=== PATIENT | female | born 1930 | race Caucasian/White ===

== ENCOUNTER 2016-03-12 15:16 | Observation (INO) | payer MEDICARE, BC ==
[2016-03-12] MEDS ORDERED: NS 0.9% 1000 ML* 1,000 ML IV SCH ×2 (16:00→20:15)
--- NOTE | 2016-03-12 16:02 | ED ---
Abdominal Pain/Female - HPI Summary HPI Summary: The patient is a 85 year old female presenting for reported generalized weakness and change in mentation. Patient only complaint is diarrhea for several days which her was also experiencing. Admits to being functionally independent at home without cane or walker requiring more assistance with ADL's today. Patient denies fever, chills, diaphoresis, visual disturbance, headache, nasal symptoms, sore throat, cough, shortness of breath, chest pain, palpitations, lightheadedness, syncope, abdominal pain, nausea, vomiting, dysuria, arthralgia or myalgia, rash. Reports history of DM on oral medication only. PCP Dr. Juwan Garcia. SH: Retired living independently with , currently admitted to hospital. No smoking or substance use. - History of Current Complaint Chief Complaint: EDAltMentalStatus Stated Complaint: VOMITING/DIARRHEA/WEAKNESS Time Seen by Provider: 03/12/16 15:29 Pain Intensity: 0 Allergies/Adverse Reactions: Allergies Allergy/AdvReac Type Severity Reaction Status Date / Time Penicillins Allergy Intermediate Hives Verified 11/30/11 08:49 Home Medications: Home Medications Escitalopram (NF) [Lexapro (NF)] 20 mg PO DAILY 03/12/16 [History Confirmed ] Exenatide [Bydureon] 2 mg SUBCUT WEEKLY 03/12/16 [History Confirmed 03/12/16] Fluticasone NASAL SPRAY 50MCG* [Flonase NASAL SPRAY 50MCG*] 2 spray BOTH NARES DAILY 03/12/16 [History Confirmed 03/12/16] Propranolol TAB* [Inderal TAB*] 10 mg PO BID 03/12/16 [History Confirmed ] glipiZIDE TAB.XL* [Glucotrol XL*] 2.5 mg PO DAILY 03/12/16 [History Confirmed ] PMH/Surg Hx/FS Hx/Imm Hx Respiratory History: Comment Only: Other Respiratory Problems/Disorders - natural invierment - Cancer History Hx Chemotherapy: No Hx Radiation Therapy: No Infectious Disease History: No Infectious Disease History: Denies: Traveled Outside the [place] in Last 30 Days Review of Systems Positive: Fatigue. Negative: Fever, Chills Eyes: Negative Negative: Blurred Vision, Diplopia ENT: Negative Negative: Sore Throat, Nasal Discharge Cardiovascular: Negative Negative: Palpitations, Chest Pain Respiratory: Negative Negative: Shortness Of Breath, Cough Positive: Diarrhea. Negative: Abdominal Pain, Vomiting, Nausea Genitourinary: Negative Negative: dysuria, hematuria Musculoskeletal: Negative Negative: Arthralgia, Myalgia Skin: Negative Negative: Rash Negative: Headache, Paresthesia, Numbness, Syncope, Slurred Speech All Other Systems Reviewed And Are Negative: Yes Physical Exam Triage Information Reviewed: Yes Vital Signs On Initial Exam: Initial Vitals Temp Pulse Resp BP Pulse Ox 97.5 F 105 20 162/67 98 03/12/16 15:20 03/12/16 15:20 03/12/16 15:20 03/12/16 15:20 03/12/16 15:20 Vital Signs Reviewed: Yes Appearance: Positive: Well-Appearing, No Pain Distress, Well-Nourished Skin: Positive: Warm, Skin Color Reflects Adequate Perfusion, Dry Head/Face: Positive: Normal Head/Face Inspection. Negative: Temporal Artery Tenderness, Cephalohematoma Eyes: Positive: Normal, EOMI, LUCINA, Conjunctiva Clear ENT: Positive: Normal ENT inspection, Hearing grossly normal, Pharynx normal, TMs normal, Other - oral mucosa dry. Negative: Pharyngeal erythema, Nasal drainage Neck: Positive: Supple, Nontender, No Lymphadenopathy Respiratory/Lung Sounds: Positive: Clear to Auscultation, Breath Sounds Present. Negative: Decreased Breath Sounds, Rales, Rhonchi, Wheezes, Unable to speak in full sentences, Fatigue Cardiovascular: Positive: Normal, RRR, Pulses are Symmetrical in both Upper and Lower Extremities, Leg Edema Left - trace, Leg Edema Right, Other - trace, S1, S2. Negative: Murmur, Rub Abdomen Description: Positive: Nontender, No Organomegaly, Soft. Negative: CVA Tenderness (R), CVA Tenderness (L), Distended, Guarding, Hernia @, Hepatomegaly , McBurney's Point Tenderness, Peritoneal Signs, Splenomegaly Bowel Sounds: Positive: Present Musculoskeletal: Positive: Normal, Strength/ROM Intact. Negative: Limited @, Interruption @, Abnormal @, Pain @ Neurological: Positive: Normal, Sensory/Motor Intact, Alert, Oriented to Person Place, Time - oriented to self, place, month; not year, CN Intact II-III, Reflexes Intact - Patellar 2+, Babinski Bilateral - downward, Cerebellar Dysfunction - normal heel to kong, Facial Symmetry, Speech Normal, Other - minimally tangential requiring redirection. Negative: Receptive Aphasia, Expressive Aphasia, Facial Droop, Slurred Speech, Pronator Drift Present Psychiatric: Positive: Normal AVPU Assessment: Alert Diagnostics - Vital Signs Vital Signs Temp Pulse Resp BP Pulse Ox 03/12/16 15:20 97.5 F 105 20 162/67 98 - Laboratory Result Diagrams: 03/12/16 15:57 03/12/16 15:57 Lab Statement: Any lab studies that have been ordered have been reviewed, and results considered in the medical decision making process. Re-Evaluation - Re-Evaluation First Eval Re-Evaluation Time: 17:19 Comment: Patient reportedly crawling out of bed stating she wishes to go upstairs to visit . Requiring 2 person assist back into bed given generalized weakness. Unsafe to be discharged. Awaiting urinalysis. Second Eval Re-Evaluation Time: 18:29 Comment: Has been reportedly incontinent of urine three times. Requested RN straight cath. Abdominal Pain Fem Course/Dx - Course Course Of Treatment: Patient is a 85 female presenting for altered mentation and generalized weakness with reported diarrhea. Afebrile without sepsis. Labs demonstrated glucose 297, BUN/Cr 22.1 but otherwise unremarkable with negative troponin. Stool occult negative. Lab indicates would not run C.Diff as stool sample was formed. Influenza negative. Urinalysis pending. As patient is unsafe to perform ADL's independently and remains with altered mentation, will be admitted to [facility] for continued evaluation and management. Spoke with PCP, Dr. Garcia , who agreed with plan to admit to [facility] overnight and will take over in AM. 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 Yancey. - Diagnoses Provider Diagnoses: Altered mental status, Generalized weakness, Diarrhea Discharge - Discharge Plan Condition: Stable Disposition: ADMITTED TO [facility] Referrals: Juwan Garcia MD [Primary Care Provider] -
[2016-03-12 16:16] LABS: Hematocrit 43 % (35-47); Hemoglobin 14.1 g/dl (12.0-16.0); Mean Corpuscular HGB Conc 33 g/dl (31-36); Mean Corpuscular Hemoglobin 30 pg (27-31); Mean Corpuscular Volume 91 fL (80-97); Mean Platelet Volume 9 um3 (7.4-10.4); Red Blood Count 4.68 10^6/ul (4.0-5.4); Red Cell Distribution Width 14 % (10.5-15); White Blood Count 8.1 10^3/ul (3.5-10.8)
[2016-03-12 16:31] LABS: BUN/Creatinine Ratio 22.1 (8-20); EGFR Non-African American 82.4 (>60); Globulin 2.8 g/dL (2-4); Magnesium 1.9 mg/dL (1.9-2.7); Potassium 3.8 mmol/L (3.5-5.0); Total Bilirubin 0.6 mg/dL (0.2-1.0); Total Protein 6.8 g/dL (6.4-8.9)
--- NOTE | 2016-03-12 19:40 | RAD ---
INDICATION: Altered mental status. Pneumonia. COMPARISON: None TECHNIQUE: An AP portable view obtained at 1936 hours is submitted. FINDINGS: Bones/Soft Tissues: There are no acute bony findings. Cardiomediastinal: The cardiomediastinal silhouette is normal. Lungs: There are no infiltrates. Pleura: There are no pleural effusions. Other: None IMPRESSION: NO ACTIVE DISEASE.
[2016-03-12] MEDS ORDERED: Acetaminophen TAB* 325 MG PO PRN (20:08)
[2016-03-12] MEDS ORDERED: Dextrose 50% Syringe 50 ML* 25 GM/50 ML SYRINGE IV PUSH PRN (20:13)
[2016-03-12 20:42] LABS: C Reactive Protein 6.46 mg/L (< 5.00)
[2016-03-12 20:42] LABS: Urine Bacteria Absent (Absent); Urine Bilirubin Negative (Negative); Urine Glucose 3+(>=500 mg/dL) (Negative); Urine Nitrite Negative (Negative)
[2016-03-12] MEDS: Propranolol TAB* 10 MG PO SCH (22:48)
[2016-03-12] MEDS: Insulin LISPRO* 1 UNITS UNIT SUBCUT SCH (22:50)
[2016-03-12] MEDS: Heparin VIAL(*) 5000 UNITS/ML VIAL (FIVE THOUSAND) SUBCUT SCH (22:51)
--- NOTE | 2016-03-12 22:54 | HP ---
HISTORY AND PHYSICAL: DATE OF ADMISSION: 03/12/16 PRIMARY CARE PHYSICIAN: Dr. Garcia. CHIEF COMPLAINT: Altered mental status. HISTORY OF PRESENT ILLNESS: Naima Saenz is an 85-year-old female with history of benign familial tremor and remote CVA who had been for the past 2 days attending to her who is actually hospitalized at our facility for stroke. The patient apparently did not leave his side for the past few days. She slept with him in the room. She stated that she did not get that much sleep. She was noted by the staff at the telemetry floor where her is staying that she had an episode of incontinence and was confused. She came into the ED for evaluation. Here, patient is able to tell me today's date with some further redirection. She otherwise appears just exhausted and slightly dehydrated. She does not have any focal neurological deficits. She is going to be placed on overnight observation with a diagnosis of altered mental status. PAST MEDICAL HISTORY: Difficult to obtain from a rather poor historian. 1. Diabetic, on oral medications. 2. History of benign familial tremor. 3. Torticollis, under the evaluation of Dr. Powell. 4. History of rectal cancer status post resection. 5. History of CVA with residual problems with balance. The patient ambulates with a cane. MEDICATIONS: Include: 1. Multivitamin 1 tablet daily. 2. Cod liver oil 1 capsule daily. 3. Vitamin C 250 mg daily. 4. Flonase nasal spray 2 sprays both nares daily. 5. Glipizide XL 2.5 mg daily. 6. Propranolol 10 mg b.i.d. 7. Exenatide 2 mg subcutaneously weekly. 8. Lexapro 20 mg daily. ALLERGIES: PENICILLIN. FAMILY HISTORY: Reviewed and noncontributory in this 85-year-old patient. SOCIAL HISTORY: The patient denies any tobacco or drug use. She states that she drinks alcohol occasionally. She is retired and lives with her . 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 Healthcare proxy is her son Joshua Saenz. Joshua's phone number is [phone]. REVIEW OF SYSTEMS: On review of systems, please see the history of present illness. The patient herself stated that she is very tired but she has no other complaints. She denies chest pain or shortness of breath. She stated that she does not feel like urinating right now and she does not remember being incontinent. All the remaining 14 systems were reviewed and is rather a poor historian and were otherwise negative. PHYSICAL EXAMINATION GENERAL: This is a very pleasant 85-year-old female who is in no acute distress. The patient is alert and oriented x2. She remembers her age and her date of . She remembers that the year is 2016 and is February. She cannot tell me the exact date. She has problems recalling when her was admitted in the hospital and how long she had been staying with him in this hospital. VITAL SIGNS: Blood pressure of 152/59, heart rate of 102 and regular, respiratory rate 22, oxygen saturation 97% on room air, temperature 97.5. HEENT: Head atraumatic, normocephalic. Eyes: Pupils equal, round and reactive to light and accommodation. Oropharynx clear. Mucosa dry. NECK: Supple. No JVD. No bruit bilaterally. RESPIRATORY: Clear to auscultation bilaterally. CARDIOVASCULAR: Regular rate and rhythm. No murmur. ABDOMEN: Soft and nontender. Bowel sounds present in all 4 quadrants. EXTREMITIES: There is no edema. Pulses +2 bilaterally. There is no clubbing or cyanosis. NEUROLOGIC: Speech clear. Cranial nerves II through XII grossly intact. Motor strength is 5/5 bilaterally. Notable intentional tremor, this gets worse when patient appears to be more involved and stressed. SKIN: On evaluation of the skin, no ecchymotic areas or rashes noted. LABORATORY DATA: Showed sodium of 133, potassium 3.8, chloride 99, carbon dioxide 25, BUN 19, creatinine 0.68. Liver functions were unremarkable. C- reactive protein of 6.4, troponin of 0. CBC: White blood cell count of 8.1, hemoglobin of 14.1, hematocrit of 43, and platelets 283. Urinalysis showed specific gravity of 1.007, trace esterase and +3 glucose. Influenza was negative. Portable chest x-ray, impression: "No active disease." The patient's EKG is pending at the time of dictation. ASSESSMENT AND PLAN: This is an 85-year-old female with history of diabetes who had been taking care of her who is hospitalized for the past 2 days. The patient was unable to get home. Her family lives at least 4 to 5 hours away. At this point, the etiology of the patient's altered mental status is pure exhaustion, lack of sleep and dehydration. The patient is going to be observed on the medical floor. She is going to be placed on intravenous hydration. I do not believe that she has any focal neuro deficits that warrant any further neuro evaluation. I believe that the patient should to be left to sleep overnight, undisturbed as long as possible. She does not appear to be infected. For her diabetes, the patient is going to be placed on insulin sliding scale and her sulfonylurea is going to be held while in the hospital. For benign familial tremor, propranolol is going to be continued. For DVT prophylaxis, the patient is going to be placed on heparin subcutaneously. The patient's code status is full. The patient's presentation and plan was discussed with patient's healthcare proxy, his son Joshua Saenz. Son is aware that most likely patient is going to be able to go home in the morning and patient's daughter is on her way from [place] to help with the transition of the patient going home. TIME SPENT: Approximately 65 minutes were spent on admission of this patient. More than half the time was spent [id number] with the patient doing the interview and physical exam. CC: Dr. Powell; Dr. Garcia * [id number]/[facility] #: [id number] MTDD
[2016-03-13] MEDS: Heparin VIAL(*) 5000 UNITS/ML VIAL (FIVE THOUSAND) SUBCUT SCH ×2 (06:07→15:16)
[2016-03-13 06:43] LABS: Hematocrit 39 % (35-47); Hemoglobin 12.8 g/dl (12.0-16.0); Mean Corpuscular HGB Conc 33 g/dl (31-36); Mean Corpuscular Hemoglobin 30 pg (27-31); Mean Corpuscular Volume 92 fL (80-97); Mean Platelet Volume 10 um3 (7.4-10.4); Red Blood Count 4.23 10^6/ul (4.0-5.4); Red Cell Distribution Width 14 % (10.5-15); White Blood Count 6.5 10^3/ul (3.5-10.8)
[2016-03-13 06:55] LABS: BUN/Creatinine Ratio 19.3 (8-20); Calcium 8.3 mg/dL (8.6-10.3)
[2016-03-13 06:59] LABS: Potassium 4.5 mmol/L (3.5-5.0)
--- NOTE | 2016-03-13 08:31 | PN ---
Subjective - Subjective Reason for Note: Discharge Note History: I obtained a history from the patient and also Dr. Yancey's admitting H and P. She has been at Evaristo Souza's side and stayed the night with him the night before last. When I saw her y'day morning I woke her up. She looked uncomfortable attempting to sleep upright on a sofa and her neck was flexed forward. She was able to give an account of herself and her , but this was not full of detail. She became unable to ambulate independently, incontinent of urine, disoriented and hence was transferred to the ED. This morning she doesn't remember the events of yesterday. Orientation: place, person, but not time (can't state month - states year each time I ask in different ways), can only remember 1/3 objects after 2 mins. She is able to state why Evaristo is in the hospital. She states she feels much better and back to normal. She denies any focal symptoms. In particular, she has no headache or stroke-like symptoms, no diploplia or change in her vision, no focal weakness or loss of sensation. She states she slept very well overnight and is feeling refreshed. Home meds (from recently reconciled office EMR) ALPRAZolam 0.25 mg tablet 1 pill at bedtime as needed, MDD 1 pill amLODIPine 2.5 mg tablet 1pill daily aspirin 81 mg chewable tablet Chew 1 tablet every day by oral route. Bydureon 2 mg/0.65 mL subcutaneous pen injector Inject 1 injector every week by subcutaneous route. cholecalciferol (vitamin D3) 1,000 unit tablet 1 pill daily clobetasol 0.05 % topical ointment APPLY A THIN LAYER TO THE AFFECTED AREA(S) BY TOPICAL ROUTE 2 TIMES PER DAY escitalopram 20 mg tablet Take 1 tablet every day by oral route. estradiol 0.01% (0.1 mg/gram) vaginal cream apply twice weekly fluorouracil 5 % topical cream fluticasone 50 mcg/actuation nasal spray,suspension [place] 2 sprays by intranasal route. FreeStyle Lancets 28 gauge FreeStyle Lite Strips occasional use glipiZIDE ER 2.5 mg tablet, extended release 24 hr 1 pill dialy hyoscyamine 0.125 mg sublingual tablet every 4 hours as needed levocetirizine 5 mg tablet 1 pill dialy melatonin 3 mg tablet Probiotic daily propranolol 10 mg tablet 1 pill daily psyllium husk 0.52 gram capsule simvastatin 40 mg tablet 1 pill daily zolpidem 5 mg tablet as needed for sleep Active Problems: Active Problems Change in mental state (Acute) R41.82 Dehydration (Acute) E86.0 Gait disorder (Acute) R26.9 Hyperglycemia (Acute) R73.9 Urinary incontinence (Acute) R32 Anxiety disorder (Chronic) F41.9 Dementia (Chronic) F03.90 Essential tremor (Chronic) G25.0 GERD (gastroesophageal reflux disease) (Chronic) K21.9 History of CVA (cerebrovascular accident) (Chronic) Z86.73 Hypercholesterolemia (Chronic) E78.00 Hypertension (Chronic) I10 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 Obese (Chronic) E66.9 Torticollis (Chronic) M43.6 Type 2 diabetes mellitus (Chronic) Current Medications: Current Medications Acetaminophen (Tylenol Tab*) 650 mg PO Q4H PRN PRN Reason: FEVER/PAIN Dextrose (D50w Syringe 50 Ml*) 12.5 gm IV PUSH .FOR FS < 60 - SS PRN PRN Reason: FS < 60 Escitalopram Oxalate (Lexapro (Nf)) 20 mg PO DAILY [facility] Fluticasone Propionate (Flonase Nasal [place] 50mcg*) 2 spray BOTH NARES DAILY [facility] Heparin Sodium (Porcine) (Heparin Vial(*)) 5,000 units SUBCUT Q8HR [facility] Last Admin: 03/13/16 06:07 Dose: 5,000 units Sodium Chloride (Ns 0.9% 1000 Ml*) 1,000 mls @ 125 mls/hr IV PER RATE [facility] Last Admin: 03/13/16 03:04 Dose: 125 mls/hr Insulin Human Lispro (Humalog*) 0 units SUBCUT ACHS [facility] PRN Reason: Protocol Last Admin: 03/12/16 22:50 Dose: 6 unit Propranolol HCl (Inderal Tab*) 10 mg PO BID [facility] Last Admin: 03/12/16 22:48 Dose: 10 mg - Review of Systems Constitutional Symptoms: No: Fever, Night Sweats Pulmonary: Negative: Cough, Sputum Cardiology: Negative: Shortness of Breath, Palpitations, Swelling of Ankles Gastroenterology: Negative: Abdominal Pain, Nausea, Vomiting, Anorexia, Change in Bowel Habits Genital - Urinary: Positive: Other - incontinence Negative: Dysuria, Polyuria Endocrinology: Positive: Diabetes Mellitus Neurology: Positive: Change in Balancing Negative: Headache, Change in Vision, Dizziness, Change in Speech, Numbness\ Paresthesiae Psychiatry: Positive: Anxiety Home Medications: Home Medications Medication Instructions Recorded Confirmed Type Ascorbic Acid TAB* [Vitamin C 250 mg PO DAILY 11/30/11 03/12/16 History TAB*] Cod Liver Oil 1 cap PO DAILY 11/30/11 03/12/16 History Multiple Vitamin [Multivitamin+] 1 liq PO DAILY 11/30/11 03/12/16 History Escitalopram (NF) [Lexapro (NF)] 20 mg PO DAILY 03/12/16 03/12/16 History Exenatide [Bydureon] 2 mg SUBCUT WEEKLY 03/12/16 03/12/16 History Fluticasone NASAL SPRAY 50MCG* 2 spray BOTH NARES DAILY 03/12/16 03/12/16 History [Flonase NASAL SPRAY 50MCG*] Propranolol TAB* [Inderal TAB*] 10 mg PO BID 03/12/16 03/12/16 History glipiZIDE TAB.XL* [Glucotrol XL*] 2.5 mg PO DAILY 03/12/16 03/12/16 History Allergies: Allergies Allergy/AdvReac Type Severity Reaction Status Date / Time Penicillins Allergy Intermediate Hives Verified 11/30/11 08:49 Objective - Vital Signs Vital Signs: Vital Signs 03/12/16 03/12/16 03/12/16 20:30 21:00 21:02 Temperature Pulse Rate 103 101 106 Respiratory 25 23 19 Rate Blood Pressure 137/91 164/75 (mmHg) O2 Sat by Pulse 93 93 94 Oximetry 03/12/16 03/12/16 03/13/16 21:30 22:10 00:01 Temperature 98.3 F 98.0 F Pulse Rate 117 98 Respiratory 22 16 16 Rate Blood Pressure 159/69 169/53 137/64 (mmHg) O2 Sat by Pulse 96 95 Oximetry 03/13/16 03:11 Temperature 98.4 F Pulse Rate 85 Respiratory 16 Rate Blood Pressure 140/71 (mmHg) O2 Sat by Pulse 95 Oximetry - Intake and Output Intake and Output: Intake & Output 03/10/16 03/11/16 03/12/1603/13/17 11:59 11:59 11:59 11:59 Intake Total 921 Balance 921 Weight 170 lb 9.6 oz Intake: IV Fluids 921 NS (0.9%) 921 Oral 0 Other: Estimated Void Large # Bowel Movements 0 # Voids 1 ADLs: Meal Record Start: 03/12/16 22: 57 Freq: DAILY@0900,1400,1800 Status: Active Created 03/12/16 22:57 (Rec: 03/12/16 22:57 [id number]) Intake and Output Start: 03/12/16 21: 25 Freq: DAILY@0600,1400,2200 Status: Inactive Document 03/12/16 22:00 [id number] (Rec: 03/12/16 22:19 [id number]) Intake and Output Start: 03/12/16 22: 57 Freq: DAILY@0600,1400,2200 Status: Active Created 03/12/16 22:57 (Rec: 03/12/16 22:57 [id number]) Document 03/13/16 05:40 [id number] (Rec: 03/13/16 05:40 [id number]) - Physical Exam General: No Cyanosis, No Anemia, No Jaundice, No Lymphadenopathy, No Clubbing Eye Exam: bilateral: PERRLA, EOMI, Vision Field - intact - no inattention Skin: Normal: Rash Head: Yes Normocephalic Lungs and Chest: Yes: Chest Expansion Full, Chest Expansion Symetrica, Percussion Note Resonant, Vessicular Breath Sounds. No: Crackles, Wheezes Heart Rate and Rhythm: Regular JVP: Not Elevated Additional Cardiovascular: Yes: Normal Heart Sounds. No: Heart Murmur, Pedal Edema Abdominal Exam: Yes: Soft, Bowel Sounds Present. No: Distention, Abdominal Mass , Hepatomegaly, Splenomegaly - Extremities Cranial Nerves II-XII Intact: Yes Limbs: Normal Power, Normal Tone, Normal Coordination, Normal Sensation, Abnormal Gait - She requires a walker, but can walk independently - Neuro Orientation: Other - not in time Psychiatric: Anxious Speech: Normal Results - Results Lab Results: Laboratory Results - last 24 hr 03/12/16 03/12/16 03/13/16 20:32 22:27 06:05 WBC 6.5 RBC 4.23 Hgb 12.8 Hct 39 MCV 92 MCH 30 MCHC 33 RDW 14 Plt Count 213 MPV 10 Neut % (Auto) 56.3 Lymph % (Auto) 31.4 [place] % (Auto) 9.6 H Eos % (Auto) 2.0 Baso % (Auto) 0.7 Absolute Neuts (auto) 3.6 Absolute Lymphs (auto) 2.0 Absolute Monos (auto) 0.6 Absolute Eos (auto) 0.1 Absolute Basos (auto) 0 Absolute Nucleated RBC 0 Nucleated RBC % 0 Sodium Potassium Chloride Carbon Dioxide Anion Gap BUN Creatinine Est GFR ( Amer) Est GFR (Non-Af Amer) BUN/Creatinine Ratio Glucose POC Glucose (mg/dL) 300 H Calcium Urine Color Yellow Urine Appearance Clear Urine pH 5.0 Ur Specific [place] 1.007 L Urine Protein Negative Urine Ketones Negative Urine Blood Negative Urine Nitrate Negative Urine Bilirubin Negative Urine Urobilinogen Negative Ur Leukocyte Esterase Trace H Urine WBC (Auto) Trace(0-5/hpf) Urine RBC (Auto) Trace(0-2/hpf) Urine Bacteria Absent Urine Glucose 3+(>=500 mg/dl) H 03/13/16 03/13/16 06:05 08:01 WBC RBC Hgb Hct MCV MCH MCHC RDW Plt Count MPV Neut % (Auto) Lymph % (Auto) [place] % (Auto) Eos % (Auto) Baso % (Auto) Absolute Neuts (auto) Absolute Lymphs (auto) Absolute Monos (auto) Absolute Eos (auto) Absolute Basos (auto) Absolute Nucleated RBC Nucleated RBC % Sodium 138 Potassium 4.5 Chloride 109 Carbon Dioxide 20 L Anion Gap 9 BUN 11 Creatinine 0.57 Est GFR ( Amer) 130.0 Est GFR (Non-Af Amer) 101.0 BUN/Creatinine Ratio 19.3 Glucose 207 H POC Glucose (mg/dL) 230 H Calcium 8.3 L Urine Color Urine Appearance Urine pH Ur Specific [place] Urine Protein Urine Ketones Urine Blood Urine Nitrate Urine Bilirubin Urine Urobilinogen Ur Leukocyte Esterase Urine WBC (Auto) Urine RBC (Auto) Urine Bacteria Urine Glucose Radiology Results: Patient Name: FORTUNATO SOUZA Medical Record#: [id number] Ordering Physician: Kenyatta Yancey MD Acct.#: [id number] : 1930 Age: 85 Sex: F Location: EMERGENCY DEPARTMENT Exam Date: 03/12/161907 ADM Status: REG ER Order Information: CHEST AP PORTABLE Accession Number: [id number] CPT: 63394 INDICATION: Altered mental status. Pneumonia. COMPARISON: None TECHNIQUE: An AP portable view obtained at 1936 hours is submitted. FINDINGS: Bones/Soft Tissues: There are no acute bony findings. Cardiomediastinal: The cardiomediastinal silhouette is normal. Lungs: There are no infiltrates. Pleura: There are no pleural effusions. Other: None IMPRESSION: NO ACTIVE DISEASE. <Electronically signed by Julio Cesar Lynne MD in OV> 03/12/161936 Dictated By: Julio Cesar Lynne MD Dictated Date/Time: 03/12/161936 Transcribed Date/Time: 03/12/161936 Copy to: CC:Juwan Garcia MD; Kenyatta Yancey MD; Evaristo Lewis MD Imaging - [facility] [place] [facility] [address] [place] [address] ph [phone] ph ([phone]) ph ([phone]) 1 of 1 Assessment - Problem List Assessment: Patient Problems Change in mental state (Acute) Dehydration (Acute) Gait disorder (Acute) Hyperglycemia (Acute) Urinary incontinence (Acute) Anxiety disorder (Chronic) Dementia (Chronic) Essential tremor (Chronic) GERD (gastroesophageal reflux disease) (Chronic) History of CVA (cerebrovascular accident) (Chronic) Hypercholesterolemia (Chronic) Hypertension (Chronic) 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 She was exhausted, stressed, dehydrated. This tipped over her coping mechanisms and she became disoriented, unable to walk independently. She is much better this morning. She is speaking in full sentences and is fully aware of her and Evaristo's situation. I don't think there is an underlying infection or acute illness. I think we have uncovered some mild dementia with sundowning and disorientation due to being in an unfamiliar environment. She was able to tell me an up to date account of her family and there whereabouts this morning - plus their plan for increased help Gait disorder (Acute) This is exacerbated, and I think she should use a walker. Her discourages this and she usually uses a cane - though she has a walker Hyperglycemia (Acute) She usually takes glipizide and has not received any. She doesn't usually have tight glycemic control - last A1c 8.5%. I will increase her glipizide dose Urinary incontinence (Acute) acute on chronic Anxiety disorder (Chronic) This is exacerbated by her situation Dementia (Chronic) She has mild dementia and this is uncovered by her circumstances Essential tremor (Chronic) ongoing GERD (gastroesophageal reflux disease) (Chronic) no symptoms History of CVA (cerebrovascular accident) (Chronic) remote - no signs of anything new Hypercholesterolemia (Chronic) Usually treated Hypertension (Chronic) not exacerbated Obese (Chronic) secondary diagnosis Torticollis (Chronic) secondary diagnosis Type 2 diabetes mellitus (Chronic) As noted above Lichen sclerosis et atrophica vulva chronic issue I discussed the above with the patient who asked me to speak to her daughter-in- law Anjali Souza, who is an ICU nurse and has come to [place]. She is staying with her family. She has left her home and is coming to the hospital - I will speak with her later. Afternoon note: I have spoken with Anjali Souza and the shoe planner. She is going home with Anjali who is around over the weekend. When she leaves she will have 24/7 caregivers for the short term. She is safe for discharge to this arrangement
[2016-03-13] MEDS ORDERED: Fluticasone NASAL SPRAY 50MCG* 16 gm SPRAY BTL BOTH NARES SCH (09:00)
[2016-03-13] MEDS ORDERED: Propranolol TAB* 10 MG PO SCH (09:00)
[2016-03-13] MEDS ORDERED: glipiZIDE TAB.XL* 5 MG PO SCH (09:00)
[2016-03-13] MEDS ORDERED: Escitalopram (NF) 20 MG TAB PO SCH (09:00)
[2016-03-13] MEDS: Insulin LISPRO* 1 UNITS UNIT SUBCUT SCH ×2 (09:43→12:50)
[2016-03-13] MEDS: Propranolol TAB* 10 MG PO SCH (09:46)
[2016-03-13 11:16] VITALS: BP 145/61
== END 2016-03-13 16:05 | disposition home or self-care (01) ==
LOC: ED 15:16 → MEDTELE 20:08
PROVIDERS: ADMIT Internal Medicine; ATTEND Internal Medicine
DX: R41.82 Altered mental status, unspecified (principal); E86.0 Dehydration; R53.83 Other fatigue; E11.9 Type 2 diabetes mellitus without complications; Z79.84 Long term (current) use of oral hypoglycemic drugs; Z79.899 Other long term (current) drug therapy; R32 Unspecified urinary incontinence; F41.9 Anxiety disorder, unspecified; G25.0 Essential tremor; F03.90 Unspecified dementia, unspecified severity, without behavioral disturbance, psychotic disturbance, mood disturbance, and anxiety; R26.9 Unspecified abnormalities of gait and mobility; R94.31 Abnormal electrocardiogram [ECG] [EKG]; R00.0 Tachycardia, unspecified
CPT/HCPCS: 36415; 71010; 80048; 80053; 81003; 81015; 82272; 83735; 84484; 85025; 86140; 87045; 87046; 87086; 87425; 87449; 87493; 87502; 87899; 93005; 96360; 96361; 99284; A9270-GY; G0378; G8978-GP-CI; G8979-GP-CI; G8980-GP-CI; G8987-GO-CK; G8988-GO-CI; J1644